=== PATIENT | male | born 1995 | race Caucasian/White ===

== ENCOUNTER 2019-09-20 07:32 | Emergency (ER) | payer SELFPAY ==
[2019-09-20] MEDS ORDERED: Ketorolac 60 MG/2 ML SDV IM ONE (07:56)
--- NOTE | 2019-09-20 08:11 | EDM.PDOC ---
ED HPI GENERAL MEDICAL PROBLEM - General Chief Complaint: General Stated Complaint: TESTICULAR PAIN Time Seen by Provider: 09/20/19 07:50 Source of Information: Reports: Patient History Limitations: Reports: No Limitations - History of Present Illness INITIAL COMMENTS - FREE TEXT/NARRATIVE: 24-year-old male with mild intermittent testicular pain starting last evening, however at 5 AM he woke up with intense severe left lower quadrant pain and testicular pain with nausea. He had one emesis on the way to the hospital. The pain seemed to let up somewhat on the way, but he has "never had pain like this". No dysuria or fever. Denies any flank pain. No recent trauma. No dysuria. Onset: Sudden (The intense pain started at 5 AM, 3 hours ago) Location: Reports: Other (Left lower groin, abdomen and testicle) Improves with: Reports: None Worsens with: Reports: None Associated Symptoms: Reports: Nausea/Vomiting Left Lower Abdominal Pain Score (Numeric/FACES): 7 - Related Data Allergies Allergy/AdvReac Type Severity Reaction Status Date / Time No Known Allergies Allergy Verified 09/20/19 07:45 Home Meds: Home Meds NK [No Known Home Meds] 09/20/19 [History] Past Medical History - Past Surgical History GI Surgical History: Reports: Appendectomy Social & Family History - Tobacco Use Smoking Status *Q: Never Smoker - Caffeine Use Caffeine Use: Reports: None - Recreational Drug Use Recreational Drug Use: No ED ROS GENERAL - Review of Systems Review Of Systems: See Below Constitutional: Denies: Fever, Chills HEENT: Reports: No Symptoms Respiratory: Reports: No Symptoms Cardiovascular: Reports: No Symptoms GI/Abdominal: Reports: Abdominal Pain, Vomiting (1 vomiting episode on the way to the hospital). Denies: Diarrhea : Reports: Other (Left testicular pain). Denies: Dysuria, Flank Pain, Frequency, Urgency Skin: Reports: No Symptoms Neurological: Reports: No Symptoms ED EXAM, GENERAL - Physical Exam Exam: See Below Exam Limited By: No Limitations General Appearance: Alert, Anxious, Mild Distress (Looks fairly uncomfortable) Head: Atraumatic Respiratory/Chest: No Respiratory Distress GI/Abdominal: Soft, Non-Tender (Male) Exam: Normal Inspection (No hernia, the left testicle is not swollen or tender to palpation) Neurological: Alert, Oriented Psychiatric: Anxious Skin Exam: Warm, Dry Course - Vital Signs Last Recorded V/S: Last Vital Signs Temp 96.8 F L 09/20/19 07:45 Pulse 89 09/20/19 07:45 Resp 16 09/20/19 07:45 BP 104/67 09/20/19 07:45 Pulse Ox 98 09/20/19 07:45 - Orders/Labs/Meds Meds: Medications Discontinued Medications Generic Name Dose Route Start Last Admin Trade Name Ambar PRN Reason Stop Dose Admin Ketorolac Tromethamine 60 mg 09/20/19 07:56 09/20/19 08:02 Toradol IM 09/20/19 07:57 60 mg ONETIME ONE Administration Tamsulosin HCl 0.4 mg 09/20/19 08:26 09/20/19 08:32 Flomax PO 09/20/19 08:27 0.4 mg ONETIME ONE Administration - Re-Assessments/Exams Free Text/Narrative Re-Assessment/Exam: 09/20/19 08:11 60 mg of IM Toradol was given and the patient was CT for renal stone on the left side. If this is negative we will proceed to an ultrasound of the testicle, but without testicular pain on palpation I think this is unlikely. 09/20/19 08:48 IMPRESSION: 4 mm left UVJ stone with mild hydroureteronephrosis. Copies of the above result and films were given to the patient, he was discharged with 10 more doses of ketorolac and 10 hydrocodone for extra pain control and will recheck in 2 to 3 days if symptoms are persisting. Departure - Departure Time of Disposition: 09:07 Disposition: Home, Self-Care 01 Clinical Impression: Renal colic on left side, Nephrolithiasis - Discharge Information Instructions: Kidney Stones, [id number] Referrals: PCP,None [Primary Care Provider] - Forms: ED Department Discharge Care Plan Goals: Take 1 ketorolac pill every 6-8 hours while having pain, and use stronger pain medication as needed. Continue regular activity and diet if possible and recheck in 2 to 3 days if not improving satisfactorily. Sepsis Event Note (ED) - Evaluation Sepsis Screening Result: No Definite Risk - Focused Exam Vital Signs: Vital Signs Temp Pulse Resp BP Pulse Ox 09/20/19 07:45 96.8 F L 89 16 104/67 98
[2019-09-20] MEDS ORDERED: Tamsulosin 0.4 MG Cap.ER PO ONE (08:26)
--- NOTE | 2019-09-20 08:44 | CRLCT ---
HISTORY: Left groin pain. COMPARISON: None. TECHNIQUE: Noncontrast axial images were obtained through abdomen and pelvis. FINDINGS: The lung bases are clear. 4 mm stone at the left UVJ. Mild hydro ureteral nephrosis. The right kidney is normal without stones. The liver, spleen, pancreas, gallbladder and adrenal glands are with normal without the presence of contrast. The bowel is normal in caliber. 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 IMPRESSION: 4 mm left UVJ stone with mild hydroureteronephrosis. Please note that all CT scans at this facility use dose modulation, iterative reconstruction, and/or weight-based dosing when appropriate to reduce radiation dose to as low as reasonably achievable. Dictated by Roula Wilkerson MD @ Sep 20 2019 8:39AM Signed by Dr. Roula Wilkerson @ Sep 20 2019 8:42AM
== END 2019-09-20 09:07 | disposition home or self-care (01) ==
LOC: JP.ED 07:32
DX: N20.0 Calculus of kidney (principal); N50.812 Left testicular pain; Z90.49 Acquired absence of other specified parts of digestive tract
CPT/HCPCS: 74176; 96372; 99284; A9270; J1885